=== PATIENT | female | born 1985 | race Asian ===

== ENCOUNTER 2024-03-08 14:59 | Emergency (ER) | payer BC ==
[2024-03-08 16:47] LABS: Absolute Basophils 0.1 K/uL (0-0.5); Absolute Eosinophils 0.2 K/uL (0-0.5); Absolute Lymphocytes (CBC) 1.4 K/uL (0.7-4.9); Absolute Monocytes 0.3 K/uL (0.1-1.3); Absolute Neutrophil 7.5 K/uL (1.8-8.0); Basophils % 0.6 % (0-1.3); Eosinophils % 1.6 % (0-4.4); Hematocrit 37.8 % (36.0-45.0); MCV 83.7 fL (80-100); MPV 7.2 fL (7.6-11.3); Monocytes % 2.7 % (3.3-12.3); Neutrophils % 80.1 % (41.7-73.7); Nucleated Red Blood Cells % 0.1 % (0-0); Platelets 212 thou/uL (152-406); RBC Red Blood Cell Count 4.52 M/uL (3.86-4.86); Red Cell Distribution Width 12.2 % (12.1-15.2)
[2024-03-08 17:01] LABS: Albumin 3.7 g/dL (3.4-5.0); Albumin/Globulin Ratio 0.9 (1.1-1.8); Anion Gap 21.9 mEq/L (5.0-15.0); Bilirubin Total 1.8 mg/dL (0.2-1.0); Globulin 3.9 g/dL (2.3-3.5); Protein, Total 7.6 g/dL (6.4-8.2)
[2024-03-08 17:03] LABS: Potassium 3.9 mEq/L (3.5-5.1)
[2024-03-08 17:04] LABS: Specific Gravity 1.026 (1.005-1.030)
--- NOTE | 2024-03-08 17:45 | RAD REPORT ---
EXAMINATION: CT ABDOMEN AND PELVIS WITH CONTRAST CLINICAL INDICATION: Female, 38 years old.ABD PAIN TECHNIQUE: CT abdomen and pelvis was performed, after the administration of IV contrast, as per [facility]. Axial, sagittal and coronal reconstructions were obtained. One or more of the following dose reduction techniques were used: Automated exposure control, adjustment of the mA and/o r kV according to patient size, and/or iterative reconstruction. Unless otherwise specified, incidental findings do not require dedicated imaging follow-up. [id number]. COMPARISON: No prior exam. FINDINGS: LOWER CHEST: The visualized lung bases are clear. LIVER: Hepatic steatosis. GALLBLADDER/BILE DUCT: No biliary ductal dilatation.? PANCREAS: Mild diffuse peripancreatic edema. SPLEEN: Normal size. No focal lesion. ADRENALS: Normal; no mass. KIDNEYS AND URETERS: Normal size and contour. No hydronephrosis. GASTROINTESTINAL TRACT: Stomach is non-dilated. Small bowel has normal course and caliber. No colonic wall thickening or pericolonic inflammatory changes. Normal appendix. PERITONEUM: No ascites. LYMPH NODES: No lymphadenopathy. ABDOMINAL AORTA AND OTHER VESSELS: Normal caliber aorta and IVC. URINARY BLADDER: Normal contour. REPRODUCTIVE ORGANS: 8.6 x 5.7 cm right adnexal cystic lesion.. MUSCULOSKELETAL: No acute or suspicious osseous abnormality. ADDITIONAL FINDINGS: None. IMPRESSION: Acute pancreatitis. No complicating features. 8.6 x 5.7 cm cystic right adnexal lesion. Consider pelvic MR with contrast or gynecology evaluation
[2024-03-08 17:55] LABS: MCHC 37.1 g/dL (32.0-36.0)
[2024-03-08] MEDS ORDERED: MORPHINE 4 MG/ML SYR ONE (18:23)
--- NOTE | 2024-03-08 18:43 | EDPHYS ---
Physician Documentation [facility] Name: Sherice Keys Age: 38 yrs Sex: Female : 1985 Arrival Date: 03/08/2024 Time: 14:59 Bed 7 Private MD: ED Physician Rigo Rosas HPI: 03/08 18:18 This 38 yrs old Female presents to ER via Ambulatory with complaints of Abdominal ms3 Pain. 18:18 38-year-old female with past medical history of pancreatitis, hyperlipidemia presents ms3 to the emergency department for left upper quadrant pain and loose stools. Patient states the discomfort radiates through to her left side. She denies any alleviating or inciting factors. Patient states she took hydrocodone without relief of her symptoms. Patient states her symptoms feel as when she had pancreatitis in the past. Historical: - Allergies: 15:18 No Known Allergies; hb - Home Meds: 15:18 Fish Oil oral [Active]; Labetalol Oral [Active]; amlodipine oral [Active]; rosuvastatin hb oral [Active]; - PMHx: 15:18 Pancreatitis; High Cholesterol; hb - PSHx: 15:18 section; hb - Immunization history:: Adult Immunizations up to date. - Infectious Disease History:: Denies. - Social history:: Smoking status: Patient denies any tobacco usage or history of. ROS: 18:18 Constitutional: Negative for fever, and chills. Cardiovascular: Negative for chest ms3 pain, and palpitations. Respiratory: Negative for shortness of breath, cough, wheezing, and pleuritic chest pain, 18:18 MS/Extremity: Negative for injury and deformity, Skin: Negative for injury, rash, and discoloration, 18:18 Abdomen/GI: Positive for abdominal pain, diarrhea, Exam: 18:18 Constitutional: This is a well developed, well nourished patient who is awake, alert, ms3 and in no acute distress. Chest/axilla: Normal chest wall appearance and motion. Nontender with no deformity. Cardiovascular: Regular rate and rhythm with a normal S1 and S2. No gallops, murmurs, or rubs. Normal PMI, no JVD. No pulse deficits. Respiratory: Lungs have equal breath sounds bilaterally, clear to auscultation and percussion. No rales, rhonchi or wheezes noted. No increased work of breathing, no retractions or nasal flaring. 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 No pulse deficits. Abdomen/GI: Soft, mid and upper abdominal tenderness without rebound or masses Vital Signs: 15:17 BP 119 / 91; Pulse 78; Resp 16; Temp 98.1; Pulse Ox 100% ; Weight 90.72 kg; Height 5 hb ft. 5 in. ; Pain 10/10; 16:30 BP 117 / 84; Pulse 72; Resp 16; Pulse Ox 99% ; ko1 18:32 BP 138 / 91; Pulse 82; Resp 16; Pulse Ox 97% ; ko1 19:30 BP 136 / 89; Pulse 80; Resp 18; Pulse Ox 96% ; cp4 20:30 BP 132 / 96; Pulse 83; Resp 18; Pulse Ox 96% ; cp4 21:30 BP 121 / 83; Pulse 90; Resp 18; Pulse Ox 94% ; cp4 22:30 BP 117 / 76; Pulse 91; Resp 18; Pulse Ox 94% ; cp4 23:00 BP 119 / 88; Pulse 97; Resp 18; Temp 97.2; Pulse Ox 93% on 2 lpm NC; br2 15:17 Body Mass Index 33.28 (90.72 kg, 165.1 cm) hb 15:17 Pain Scale: Adult hb MDM: 15:41 Medical Screening Exam initiated ms3 18:42 Differential diagnosis: gastroesophageal reflux disease, non-specific abd pain, rn pancreatitis, Peptic Ulcer Disease, Perf. Duodenal Ulcer, Perf. Gastric Ulcer. Data reviewed: vital signs, nurses notes, lab test result(s), radiologic studies, CT scan, and as a result, I will admit patient. Consideration of Admission/Observation Patient was admitted/placed on observation. Escalation of care including admission/observation considered. Counseling: I had a detailed discussion with the patient and/or guardian regarding the historical points, exam findings, and any diagnostic results supporting the discharge/admit diagnosis, lab results, radiology results, the need for further work-up and treatment in the hospital. Response to treatment: the patient's symptoms have mildly improved after treatment. 18:43 Care significantly affected by the following chronic conditions: pancreatitis, rn hyperlipidemia. 03/08 15:42 Order name: CBC with Diff; Complete Time: 18:33 ms3 03/08 15:42 Order name: CMP; Complete Time: 17:29 ms3 03/08 15:42 Order name: Lipase; Complete Time: 17:29 ms3 03/08 15:42 Order name: Test, Urine; Complete Time: 17:29 ms3 03/08 17:48 Order name: Lipid Profile; Complete Time: 20:36 ms3 03/08 19:11 Order name: Chem 7; Complete Time: 22:21 snw 03/08 19:11 Order name: Lactate w/ 2H reflex if indic.; Complete Time: 22:21 snw 03/08 19:11 Order name: Lipase; Complete Time: 22:21 snw 03/08 19:13 Order name: Blood Culture Adult (2) snw 03/08 20:03 Order name: LDL, Direct; Complete Time: 20:36 EDMS 03/08 20:41 Order name: Lab Add On EDMS 03/08 20:41 Order name: Creatine Phosphokinase; Complete Time: 22:21 EDMS 03/08 15:42 Order name: CT Abd/Pelvis - IV Contrast Only; Complete Time: 17:46 ms3 03/08 18:46 Order name: US Abdomen Limited; Complete Time: 19:38 rn 03/08 15:42 Order name: IV Saline Lock; Complete Time: 16:20 ms3 03/08 15:42 Order name: Labs collected and sent; Complete Time: 16:20 ms3 Administered Medications: 18:31 Drug: morphine IVP or IV 4 mg IVP once over 4 mins Route: IVP; Infused Over: 4 mins; ko1 Site: right antecubital; 18:46 Follow up: Response: No adverse reaction; Pain is decreased ko1 20:52 Drug: HYDROmorphone IVP 1 mg IVP once Route: IVP; Site: right antecubital; br2 21:15 Follow up: Response: No adverse reaction; Pain is decreased br2 20:52 Drug: Promethazine IVP 6.25 mg IVP once Route: IVP; Site: right antecubital; br2 21:00 Follow up: Response: No adverse reaction br2 20:52 Drug: NS 0.9% IV 1000 ml IV at 1000 ml once; to be given as a bolus over 60 minutes br2 Route: IV; Rate: 1000 ml; Site: right antecubital; 22:00 Follow up: Response: No adverse reaction cp4 03/09 00:02 Drug: Insulin Drip - (Insulin Regular Human IVP 100 units, NS 0.9% IV 100 ml) IV at br2 calculated rate continuous; Standard concentration 1unit/ml; Dose for DKA is 0.1 units/kg/hr {Co-Signature: lg3 (Sana Obrien RN).} Route: IV; Rate: 9 units/hr; Site: left antecubital; 00:21 Follow up: Response: No adverse reaction; IV Status: Infusion continued upon transfer br2 00:02 Drug: D5-1/2 NS with KCl IV 20 mEq/L 1000 ml IV at 100 ml/hr continuous Route: IV; br2 Rate: 100 ml/hr; Site: left antecubital; 00:21 Follow up: Response: No adverse reaction; IV Status: Infusion continued upon transfer br2 00:03 Drug: Sodium Bicarbonate IVP 1 amp IVP once; (50 mL); equals 50 mEq Route: IVP; Site: br2 left antecubital; 00:15 Follow up: Response: Medication Administered at Departure br2 00:03 Drug: metoCLOPramide IVP 10 mg IVP once; over 1 to 2 minutes Route: IVP; Site: left br2 antecubital; 00:21 Follow up: Response: Medication Administered at Departure br2 00:04 Drug: NS 0.9% IV 1000 ml IV at 125 ml/hr continuous Route: IV; Rate: 125 ml/hr; Site: br2 right antecubital; 02:33 Follow up: IV Status: Infusion continued upon transfer br2 Disposition Summary: 03/08/24 21:10 Transfer Ordered Notes: Transfer Location: [facility] sp4 Reason: Higher level of care sp4 Condition: Fair(03/08/24 21:10) sp4 Problem: new(03/08/24 21:10) sp4 Symptoms: are unchanged(03/08/24 21:10) sp4 Accepting Physician: [facility](03/09/24 00:22) br2 Diagnosis - Acute pancreatitis, triglyceridemia, acidosis sp4 Forms: - Medication Reconciliation Form sp4 - SBAR form sp4 Critical care time excluding procedures: 00:06 Critical care time: Bedside Care: 36 minutes, Consultation: 12 minutes, Family sp4 Intervention: 12 minutes. Total time: 60 minutes Signatures: Dispatcher [employer] EDMS Conchita Rodriguez, HALL SUPERVISOR-C HALL SUPERVISOR-Csnw Klever Mo MD MD rn Baxter, Heather, RN RN Bonifacio Tran, DO ms3 Renita Saez, RN RN ko1 Rigo Rosas MD MD sp4 Daniela Lora RN RN br2 Karley Hansen cp4 Sana Obrien RN lg3 Corrections: (The following items were deleted from the chart) 03/08 18:46 18:46 Abdomen Limited+US.RAD.BRZ ordered. EDMS EDMS 19:02 18:43 Observation rn rn 19:02 18:43 Franklyn Frazier rn rn 19:02 18:43 Telemetry/MedSurg (observation) rn rn 19:02 18:43 Stable rn rn 19:02 18:43 new rn rn 19:02 18:43 have improved rn rn 19:02 18:43 Standard rn rn 19:02 18:43 rn rn 19:02 18:43 Other acute pancreatitis without necrosis or infection rn rn 19:11 19:11 BASIC METABOLIC PANEL+C.LAB.BRZ ordered. EDMS EDMS 19:11 19:11 LACTATE+C.LAB.BRZ ordered. EDMS EDMS 19:11 19:11 LIPASE+C.LAB.BRZ ordered. EDMS EDMS 03/09 00:22 03/08 21:10 [facility] sp4 br2
--- NOTE | 2024-03-08 18:43 | ER ---
Nurse's Notes [facility] Name: Sherice Keys Age: 38 yrs Sex: Female : 1985 Arrival Date: 03/08/2024 Time: 14:59 Bed 7 Private MD: Diagnosis: Acute pancreatitis, triglyceridemia, acidosis Presentation: 03/08 15:17 Chief complaint: LUQ pain and nausea x 2 days. Hx of pancreatitis, feels like previous hb episode. Coronavirus screen: At this time, the client does not indicate any symptoms associated with coronavirus-19. Ebola Screen: No symptoms or risks identified at this time. Initial Sepsis Screen: Does the patient meet any 2 criteria? No. Patient's initial sepsis screen is negative. Does the patient have a suspected source of infection? No. Patient's initial sepsis screen is negative. Risk Assessment: Do you want to hurt yourself or someone else? Patient reports no desire to harm self or others. Onset of symptoms was March 07, 2024. 15:17 Method Of Arrival: Ambulatory hb 15:17 Acuity: MCIKY 3 hb Historical: - Allergies: 15:18 No Known Allergies; hb - Home Meds: 15:18 Fish Oil oral [Active]; Labetalol Oral [Active]; amlodipine oral [Active]; rosuvastatin hb oral [Active]; - PMHx: 15:18 Pancreatitis; High Cholesterol; hb - PSHx: 15:18 section; hb - Immunization history:: Adult Immunizations up to date. - Infectious Disease History:: Denies. - Social history:: Smoking status: Patient denies any tobacco usage or history of. Screenin:29 [facility] ED Fall Risk Assessment (Adult) History of falling in the last 3 months, ko1 including since admission No falls in past 3 months (0 pts) Confusion or Disorientation No (0 pts) Intoxicated or Sedated No (0 pts) Impaired Gait No (0 pts) Mobility Assist Device Used No (0 pt) Altered Elimination No (0 pt) Score/Fall Risk Level 0 - 2 = Low Risk Oriented to surroundings, Maintained a safe environment, Educated pt \T\ family on fall prevention, incl call for assistance when getting out of bed, Assessed \T\ reinforced patient's understanding of fall precautions, Provided non-skid footwear, Hourly rounding (assess needs \T\ fall precautionary measures) done. Abuse screen: Denies threats or abuse. Denies injuries from another. Nutritional screening: No deficits noted. Tuberculosis screening: No symptoms or risk factors identified. Assessment: 16:30 General: Appears in no apparent distress. Behavior is calm, cooperative, appropriate ko1 for age. Pain: Complains of pain in left upper quadrant. Neuro: No deficits noted. Cardiovascular: No deficits noted. Respiratory: No deficits noted. GI: Bowel sounds present X 4 quads. Abd is soft X 4 quads. : No deficits noted. EENT: No deficits noted. Derm: No deficits noted. Musculoskeletal: No deficits noted. 19:10 Reassessment: Patient and/or family updated on plan of care and expected duration. Pain br2 level reassessed. Patient is alert, oriented x 3, equal unlabored respirations, skin warm/dry/pink. 19:10 Reassessment: Patient and/or family updated on plan of care and expected duration. Pain br2 level reassessed. Patient is alert, oriented x 3, equal unlabored respirations, skin warm/dry/pink. General: Appears uncomfortable, Behavior is calm, restless. Pain: Complains of pain in abdomen Pain radiates to abdomen Pain currently is 9 out of 10 on a pain scale. Neuro: Baptiste Agitation-Sedation Scale (RASS): 0 - Alert and Calm Level of Consciousness is awake, alert, obeys commands, Oriented to person, place, time, situation. Cardiovascular: Denies chest pain, shortness of breath. Respiratory: Airway is patent. GI: Abdomen is flat, Bowel sounds present X 4 quads. Abd is soft X 4 quads Abdomen is tender to palpation. : No signs and/or symptoms were reported regarding the genitourinary system. EENT: No signs and/or symptoms were reported regarding the EENT system. Derm: No signs and/or symptoms reported regarding the dermatologic system. Musculoskeletal: No signs and/or symptoms reported regarding the musculoskeletal system. Vital Signs: 15:17 BP 119 / 91; Pulse 78; Resp 16; Temp 98.1; Pulse Ox 100% ; Weight 90.72 kg; Height 5 hb ft. 5 in. ; Pain 10/10; 16:30 BP 117 / 84; Pulse 72; Resp 16; Pulse Ox 99% ; ko1 18:32 BP 138 / 91; Pulse 82; Resp 16; Pulse Ox 97% ; ko1 19:30 BP 136 / 89; Pulse 80; Resp 18; Pulse Ox 96% ; cp4 20:30 BP 132 / 96; Pulse 83; Resp 18; Pulse Ox 96% ; cp4 21:30 BP 121 / 83; Pulse 90; Resp 18; Pulse Ox 94% ; cp4 22:30 BP 117 / 76; Pulse 91; Resp 18; Pulse Ox 94% ; cp4 23:00 BP 119 / 88; Pulse 97; Resp 18; Temp 97.2; Pulse Ox 93% on 2 lpm NC; br2 15:17 Body Mass Index 33.28 (90.72 kg, 165.1 cm) hb 15:17 Pain Scale: Adult hb ED Course: 15:13 Patient arrived in ED. im 15:18 Triage completed. hb 15:19 Bonifacio Tran DO is Attending Physician. ms3 15:20 Arm band placed on. hb 16:20 Initial lab(s) drawn, by me, sent to lab. Inserted saline lock: 22 gauge in right ap3 antecubital area, using aseptic technique. Blood collected. Flushed with 10 mL NS. 16:28 Renita Saez, RN is Primary Nurse. ko1 16:28 Test, Urine Sent. ko1 16:29 Patient has correct armband on for positive identification. Bed in low position. Call ko1 light in reach. Side rails up X 1. Provided Education on: labs, meds. Pulse ox on. NIBP on. Door closed. Noise minimized. Lights dimmed. Warm blanket given. Pillow given. 16:29 Assisted to bathroom. ko1 16:29 Urine collected: clean catch specimen, clear. ko1 16:30 No provider procedures requiring assistance completed. ko1 17:24 CT completed. Patient tolerated procedure well. nj 17:32 CT Abd/Pelvis - IV Contrast Only In Process Unspecified. EDMS 17:54 Attending Physician role handed off by Bonifacio Tran DO rn 17:54 Klever Mo MD is Attending Physician. rn 18:01 Klever Mo MD is Attending Physician. rn 18:43 [facility]C [facility] snw 18:43 Franklyn Frazier MD is Hospitalizing Provider. rn 19:16 US Abdomen Limited In Process Unspecified. EDMS 20:10 Attending Physician role handed off by Klever Mo MD sp4 20:10 Rigo Rosas MD is Attending Physician. sp4 21:20 Blood Culture Adult (2) Sent. br2 21:46 Initiated transfer with Sherice at [facility] rv1 22:19 Doc to Doc with GI specialist at [facility]. rv1 03/09 00:19 Report received from [facility]. br2 00:21 Patient transferred, IV remains in place. br2 Administered Medications: 03/08 18:31 Drug: morphine IVP or IV 4 mg IVP once over 4 mins Route: IVP; Infused Over: 4 mins; ko1 Site: right antecubital; 18:46 Follow up: Response: No adverse reaction; Pain is decreased ko1 20:52 Drug: HYDROmorphone IVP 1 mg IVP once Route: IVP; Site: right antecubital; br2 21:15 Follow up: Response: No adverse reaction; Pain is decreased br2 20:52 Drug: Promethazine IVP 6.25 mg IVP once Route: IVP; Site: right antecubital; br2 21:00 Follow up: Response: No adverse reaction br2 20:52 Drug: NS 0.9% IV 1000 ml IV at 1000 ml once; to be given as a bolus over 60 minutes br2 Route: IV; Rate: 1000 ml; Site: right antecubital; 22:00 Follow up: Response: No adverse reaction cp4 03/09 00:02 Drug: Insulin Drip - (Insulin Regular Human IVP 100 units, NS 0.9% IV 100 ml) IV at br2 calculated rate continuous; Standard concentration 1unit/ml; Dose for DKA is 0.1 units/kg/hr {Co-Signature: lg3 (Sana Obrien RN).} Route: IV; Rate: 9 units/hr; Site: left antecubital; 00:21 Follow up: Response: No adverse reaction; IV Status: Infusion continued upon transfer br2 00:02 Drug: D5-1/2 NS with KCl IV 20 mEq/L 1000 ml IV at 100 ml/hr continuous Route: IV; br2 Rate: 100 ml/hr; Site: left antecubital; 00:21 Follow up: Response: No adverse reaction; IV Status: Infusion continued upon transfer br2 00:03 Drug: Sodium Bicarbonate IVP 1 amp IVP once; (50 mL); equals 50 mEq Route: IVP; Site: br2 left antecubital; 00:15 Follow up: Response: Medication Administered at Departure br2 00:03 Drug: metoCLOPramide IVP 10 mg IVP once; over 1 to 2 minutes Route: IVP; Site: left br2 antecubital; 00:21 Follow up: Response: Medication Administered at Departure br2 00:04 Drug: NS 0.9% IV 1000 ml IV at 125 ml/hr continuous Route: IV; Rate: 125 ml/hr; Site: br2 right antecubital; 02:33 Follow up: IV Status: Infusion continued upon transfer br2 Medication: 03/08 16:29 VIS not applicable for this client. ko1 Outcome: 18:43 Decision to Hospitalize by Provider. rn 21:10 ER care complete, transfer ordered by sp4 03/09 00:20 Transferred by ground EMS to [facility], br2 Condition: improved Instructed on the need for transfer, Demonstrated understanding of instructions, 00:22 Patient left the ED. br2 Signatures: Dispatcher [employer] EDMS Conchita Rodriguez, MANAGER ASSURANCE-C MANAGER ASSURANCE-Csnw Klever Mo MD MD rn Baxter, Heather RN RN Jadiel Pearson Amanda, RN RN ap3 Bonifacio Tran, DO ms3 Renita Saez RN RN ko1 Guillermina Ross1 Rigo Rosas MD MD sp4 Shaniqua Edmondson Christina cp4 Daniela Lora RN RN br2 Sana Obrien RN lg3
--- NOTE | 2024-03-08 19:16 | P.HP ---
Patient History Date of Service: 03/08/24 Physical Examination - Studies Laboratory Data (last 24 hrs) 03/08/24 03/08/24 16:17 16:17 WBC 9.40 Hgb 14.0 Hct 37.8 Plt Count 212 Sodium 130 L Potassium 3.9 BUN 13 Creatinine 0.63 Glucose 163 H Total Bilirubin 1.8 H AST 138 H ALT 266 H Alkaline Phosphatase 64 Lipase 72 Assessment and Plan - Advance Directives Does patient have a Living Will: No Does patient have a Durable POA for Healthcare: No
--- NOTE | 2024-03-08 19:28 | RAD REPORT ---
Abdomen Exam Limited: 03/08/2024 7:14 PM CLINICAL HISTORY: ABD PAIN STUDY: Limited right upper quadrant ultrasound of abdomen. COMPARISON: Same day CT FINDINGS: Liver: No significant abnormality. Bile ducts: No intrahepatic or extrahepatic biliary dilatation. Common bile duct measures 2 mm. Gallbladder: Normal. IMPRESSION: Unremarkable exam.
--- NOTE | 2024-03-08 19:31 | P.CNS ---
Date of Consult: 03/08/24 Reason for Consult: Pancreatitis Requesting Physician: Bonifacio Tran Chief Complaint: abdominal pain, nausea History of Present Illness: Ms. Keys is a 38-year-old female with a past medical history of familial hyperlipid proteinemia and hypertension. 2 years ago she experienced pancreatitis secondary to triglyceridemia. She takes fish oil, rosuvastatin, labetalol, and amlodipine. At 8 AM this morning, she began having significant left upper quadrant abdominal pain with radiation to her back. She admits to nausea but has had no vomiting or diarrhea. In the emergency department, she is a little more comfortable after morphine. Her laboratory evaluation is concerning for acidosis, elevated liver enzymes and T. bili, and probably a false negative lipase level. A repeat Chem-7, lipase, lactic acid, blood cultures, and an initial lipid panel have been requested. It is likely Ms. Keys will need an insulin drip for hypertriglyceridemia. As there are no ICU beds available, the request was made for the ER to transfer to a higher level of care for ICU monitoring Allergies No Known Allergies Allergy (Unverified 03/08/24 19:48) Home medications list reviewed: Yes (Fish Oil, Rosuvastatin, Labetolol, and ) - Past Medical/Surgical History Diabetic: No -: familial hyperlipid proteinemia -: Hypertension -: Primary Psychosocial/ Personal History: Patient was adopted so knows very little of her family history - Social History Smoking Status: Never smoker Alcohol use: No CD- Drugs: No Caffeine use: Yes Place of Residence: Home Review of Systems 10-point ROS is otherwise unremarkable General: Unremarkable Eyes: Unremarkable ENT: Unremarkable Respiratory: Unremarkable Cardiovascular: Unremarkable Gastrointestinal: Nausea, Abdominal Pain Genitourinary: Unremarkable Musculoskeletal: Unremarkable Integumentary: Unremarkable Neurological: Unremarkable Lymphatics: Unremarkable Physical Examination General: Alert, In no apparent distress, Oriented x3 HEENT: Atraumatic, Normocephalic Neck: Supple Respiratory: Clear to auscultation bilaterally, Normal air movement Cardiovascular: Normal pulses, Regular rate/rhythm Capillary refill: <2 Seconds Gastrointestinal: Normal bowel sounds, Tenderness (LUQ) Musculoskeletal: No clubbing, No swelling Integumentary: No rashes Neurological: Normal speech, Normal tone, Normal affect Lymphatics: No axilla or inguinal lymphadenopathy External genitalia: Deferred Rectal: Deferred Laboratory Data (last 24 hrs) 03/08/24 03/08/24 16:17 16:17 WBC 9.40 Hgb 14.0 Hct 37.8 Plt Count 212 Sodium 130 L Potassium 3.9 BUN 13 Creatinine 0.63 Glucose 163 H Total Bilirubin 1.8 H AST 138 H ALT 266 H Alkaline Phosphatase 64 Lipase 72 Conclusions/Impression: Pancreatitis 2nd to Hyperlipidemia Repeat Labs IVF bolus and then at 125 ml/hr Dilaudid while awaiting results Phenergan while awaiting results Insulin drip per protocol Hypoglycemia protocol VTE/GI protocol as we have no ICU beds, pt likely requires transfer Time Spent Managing Pts care (In Minutes): 55
[2024-03-08 19:52] LABS: HDL Cholesterol 27 mg/dL (40-60)
[2024-03-08 20:11] LABS: LDL, Direct 32 mg/dL (100-129)
[2024-03-08] MEDS ORDERED: HYDROMORPHONE HCL 1 MG/ML INJ ONE (20:38)
[2024-03-08] MEDS ORDERED: PROMETHAZINE INJ 25 MG/ML AMP ONE (20:38)
[2024-03-08] MEDS ORDERED: NA CHLORIDE 0.9% 2,000 ML ONE (20:39)
[2024-03-08 21:01] LABS: Anion Gap 25.9 mEq/L (5.0-15.0)
[2024-03-08 21:10] LABS: Potassium 3.9 mEq/L (3.5-5.1)
[2024-03-08] MEDS ORDERED: METOCLOPRAMIDE 10 MG/2mL INJ ONE (23:29)
[2024-03-08] MEDS ORDERED: NA CHLORIDE 0.9% 100 ML ONE (23:30)
[2024-03-08] MEDS ORDERED: INSULIN REGULAR (HUMAN) 100 UNIT/ML ONE (23:30)
[2024-03-08] MEDS ORDERED: D5.45NS W/KCL 20MEQ 1,000 ML IV ONE (23:31)
[2024-03-09 07:57] VITALS: BP 119/88; TEMP 97.2; O2SAT 93
== END 2024-03-09 00:22 | disposition short-term general hospital (02) ==
LOC: ER 14:59
DX: K85.90 Acute pancreatitis without necrosis or infection, unspecified (principal); E78.1 Pure hyperglyceridemia; E87.20 Acidosis, unspecified
CPT/HCPCS: 87040 ×2; 85025; 80048; 36415; 83721; 82550; 81025; 80061; 83605; 83690 ×2; 80053; 74177; 76705; 99285; Q9967; J2550; J2765; J1170; J7030